=== PATIENT | female | born 1960 | race Caucasian/White ===

== ENCOUNTER 2023-05-24 19:28 | Emergency (ER) | payer MEDICARE, MEDICAID, SELFPAY ==
--- NOTE | ~2023-05-24 | CT_ITS ---
EXAMINATION: CT head/brain wo IV con CLINICAL INFORMATION: Reason for Exam headache COMPARISON: None. TECHNIQUE: Contiguous axial imaging was performed from the skull base to vertex without intravenous contrast. Sagittal and coronal reformatted images were obtained. This CT examination was performed using dose optimization techniques as appropriate, variously including the following: * Automated exposure control * Adjustment of mA and/or kV according to patient size (this includes techniques or standardized protocols for targeted exams where dose is matched to indication/reason for exam; i.e. extremities or head) Use of iterative reconstruction technique DLP: 578 mGy-cm FINDINGS: No acute osseous or soft tissue abnormality. The mastoid air cells and visualized portions of the paranasal sinuses are well aerated. There is no evidence of acute intracranial hemorrhage or territorial infarction. No abnormal mass effect or midline shift is seen. Andujar to white matter differentiation is well preserved. No extra-axial fluid collections are identified. No hydrocephalus. No significant volume loss. There is no abnormal attenuation within the brain parenchyma. CT/CT head/brain wo IV con IMPRESSION: No acute intracranial abnormality including hemorrhage, mass effect, hydrocephalus, or acute territorial edematous infarction.
[2023-05-24 19:38] VITALS: BP 137/71; PULSE 84; RESP 19; TEMP 36.5; O2SAT 97; BMI 25.7
--- NOTE | 2023-05-24 19:44 | ED_ITS ---
HPI - General Adult General Chief complaint: Head Injury Stated complaint: hit head a couple days ago. headache, vision probs Time Seen by Provider: 05/24/23 22:40 Source: patient and family Mode of arrival: ambulatory Limitations: no limitations History of Present Illness HPI narrative: This is a 25-uatb-ktj-female presenting to the emergency department for evaluation of ? possible head injury. Patient reports that she is unsure what happened but his question she hit her head on a cabinet several days ago. She states that her partner noticed swelling to the right side of her head. Patient does admit that she has psoriasis and occasionally bleeds on her scalp. On the right side of her head there is a area of swelling, tenderness, and eschar noted. Also with palpable posterior neck lymphadenopathy. Patient reporting dizziness and headaches as well as vision changes but also reports that she just had new glasses fitted to her this week. Focal neurologic findings on examination. Related Data Allergies Allergy/AdvReac Type Severity Reaction Status Date / Time pregabalin [From Lyrica] Allergy Swelling Verified 05/24/23 19:37 acetaminophen [From Percocet] AdvReac Hallucinati Verified 05/24/23 19:37 ons oxycodone [From Percocet] AdvReac Hallucinati Verified 05/24/23 19:37 ons Review of Systems Review of Systems: All other systems are reviewed and are negative Constitutional: Reports as per HPI and Reports no additional constitutional complaints Eyes: Reports as per HPI and Reports no additional eye complaints Reports system reviewed and no additional complaints, except as documented Cardiovascular: Reports as per HPI and Reports no additional cardiovascular complaints Respiratory: Reports as per HPI and Reports no additional respiratory complaints Gastrointestinal: Reports as per HPI and Reports no additional gastrointestinal complaints Genitourinary: Reports no additional female genitourinary complaints Musculoskeletal: Reports no additional musculoskeletal complaints Skin/Breast: Reports system reviewed and no additional complaints, except as docu Psychiatric: Reports no additional psychiatric complaints Endocrine: Reports no additional endocrine complaints Hematologic/Lymphatic: Reports no additional hematologic/lymphatic complaints Allergic/Immunologic: Reports no additional allergic/immunologic complaints Reports system reviewed and no additional complaints, except as documented and Reports Abnormal speech present [facility] Past Medical History Attestation statement: The following information was validated with the patient. Social History Social History Advance Directives: No Advance Directives Information Provided: Yes Physical Exam ED Vital Signs: Vital Signs - 24 hr 05/24/23 19:38 05/24/23 22:28 Temperature 97.7 F 98.0 F Pulse Rate 84 83 Respiratory Rate 19 18 Blood Pressure 137/71 129/69 Pulse Oximetry 97 99 Oxygen Delivery Method Room Air Room Air BMI result Body Mass Index 25.7 Vital signs have been reviewed as appeared to be correct. Blood pressure normal. Heart rate normal. Respiration rate normal. Temperature normal. Oxygen saturation normal. Appearance: Alert. Oriented X3. No acute distress. Head: Normal external exam. Normocephalic. Atraumatic. No Leos signs noted. No raccoon eyes noted Eyes: PERRLA. EOMI. Conjunctiva and sclera normal. Eyelids normal. ENT: TM's Normal. Pharynx normal. Uvula midline. Moist mucous membranes. No trismus noted. No drooling noted. No muffled voice noted. Neck: Normal inspection. Neck supple. FROM. No adenopathy. Thyroid Normal. No meningeal signs. No neck mass noted. CVS: Normal heart rate and rhythm. Heart sound normal. No murmurs noted. Pulses normal throughout. Respiratory: No respiratory distress. Painless inspiration. Breath sounds norm al. No wheezes/rales/rhonchi noted. Chest nontender. No accessory muscle usage noted or decreased air movement noted. Abdomen: Soft and nontender. Bowel sounds normal in all 4 quadrants. No distenti on noted. No organomegaly noted. No visible injury noted. Back: No CVA tenderness. Full range of motion noted. Skin: Skin warm and dry. Normal skin color. Normal skin turgor. No rashes/lesions/lacerations noted. Extremities: No lower extremity edema. Extremities exhibit normal range of motion. Extremities nontender. Neuro: Oriented X 3. Cranial nerve exam: II-XII are grossly intact No motor deficit. No sensory deficit. Reflexes normal. Course Course Course Narrative: This is an RME: Additional HPI, ROS, PE not included below will be deferred to primary provider. This is a 62-yizt-pqh-female presenting to the emergency department for evaluation of ? possible head injury. Patient reports that she is unsure what happened but his question she hit her head on a cabinet several days ago. She states that her partner noticed swelling to the right side of her head. Patient does admit that she has psoriasis and occasionally bleeds on her scalp. On the right side of her head there is a area of swelling, tenderness, and eschar noted. Also with palpable posterior neck lymphadenopathy. Patient reporting dizziness and headaches as well as vision changes but also reports that she just had new glasses fitted to her this week. Focal neurologic findings on examination. No LOC. Patient is not on anticoagulants. Plan: basic labs, further ED eval Reevaluation(s) Reevaluation #1: GCS of 15, normal neuro exam, head CT is unremarkable for intra cranial bleed or pathology. Time: 23:11 Medical Decision Making Differential Diagnosis Differential Diagnoses: The differential diagnosis associated with the presentation includes (Intracranial bleed, electrolyte abnormality, severe an emia, UTI.) Admission/Observation Consideration of admission/observation: Escalation of care including admission/observation considered Lab Data MDM Lab Attestation statement: I reviewed the patient's lab results. 05/24/23 20:03 05/24/23 20:03 Labs: Lab Results 05/24/23 05/24/23 Range/Units 20:03 20:03 WBC 7.0 (4.8-10.8) X10*3/uL RBC 5.00 (4.20-5.50) X10*6/uL Hgb 14.6 (12.0-16.0) g/dl Hct 45.2 (37.0-47.0) % MCV 90.4 (80.0-98.0) fL MCH 29.2 (27.0-33.0) pg MCHC 32.3 (31.0-35.0) g/dl RDW 13.6 (11.0-16.0) % Plt Count 195 (160-400) X10*3/uL MPV 11.0 (9.4-12.3) fL Immature Gran % (Auto) 0.3 (0.0-0.4) % Neut % (Auto) 61.9 (45-73) % Lymph % (Auto) 30.4 (20-40) % Mower % (Auto) 7.1 (2-11) % Eos % (Auto) 0.0 (0-4) % Baso % (Auto) 0.3 (0-2) % Lymph # (Auto) 2.1 (1.2-4.9) X10*3/uL Mower # (Auto) 0.5 (0.1-1.2) X10*3/uL Eos # (Auto) 0.0 (0.0-0.4) X10*3/uL Baso # (Auto) 0.0 (0.0-0.2) X10*3/uL Abs Immat Gran (auto) 0.02 (0.00-0.03) X10*3/uL Absolute Neuts (auto) 4.4 (2.0-8.3) x10*3/uL Absolute Nucleated RBC 0.000 (0.0-0.012) X10*3/uL Nucleated RBC % (auto) 0.0 (0.0-0.2) /100WBC Sodium 139 (135-145) mmol/L Potassium 3.7 (3.3-5.1) mmol/L Chloride 102 (96-108) mmol/L Carbon Dioxide 23 (22-29) mmol/L Anion Gap 18 (12-20) BUN 10 (9-16) mg/dL Creatinine 0.79 (0.5-1.4) mg/dL Estim Creat Clear Calc 65.5 Estimated GFR > 60 Random Glucose 117 H (60-115) mg/dL Calcium 10.2 (8.4-10.2) mg/dL Independent Interpretation I performed an independent interpretation of an: CT Scan (Head: No acute intracranial pathology.) Radiology Impression Discussion of test interpretation with radiology: I have reviewed the radiologist's reading. Discharge Plan Discharge Clinical Impression: Concussion without loss of consciousness Patient Disposition: Home, Self-Care Instructions: Post Concussion Syndrome (ED) Referrals: Physician,Unknown J [Primary Care Provider] -
[2023-05-24 20:08] LABS: MANUAL DIFF FLAG NO
[2023-05-24 20:09] LABS: Basophils Percent Auto 0.3 % (0-2); Hematocrit 45.2 % (37.0-47.0); Hemoglobin 14.6 g/dl (12.0-16.0); Imm Gran Abs Auto 0.02 X10*3/uL (0.00-0.03); Imm Gran Pct Auto 0.3 % (0.0-0.4); Lymphocytes Absolute Auto 2.1 X10*3/uL (1.2-4.9); Lymphocytes Percent Auto 30.4 % (20-40); Mean Corpuscular HGB Conc 32.3 g/dl (31.0-35.0); Mean Corpuscular Hemoglobin 29.2 pg (27.0-33.0); Mean Corpuscular Volume 90.4 fL (80.0-98.0); Monocytes Absolute Auto 0.5 X10*3/uL (0.1-1.2); Monocytes Percent Auto 7.1 % (2-11); Neutrophils Absolute Auto 4.4 x10*3/uL (2.0-8.3); Neutrophils Percent Auto 61.9 % (45-73); Platelet Count 195 X10*3/uL (160-400); Red Cell Distribution Width 13.6 % (11.0-16.0)
[2023-05-24 20:35] LABS: Anion Gap 18 (12-20); Blood Urea Nitrogen 10 mg/dL (9-16); Calcium 10.2 mg/dL (8.4-10.2); Carbon Dioxide 23 mmol/L (22-29); Chloride 102 mmol/L (96-108); Creatinine Clr Calc Pharmacy 65.5; Estimated Glomerular Filt Rate > 60; Glucose Random 117 mg/dL (60-115); Potassium 3.7 mmol/L (3.3-5.1); Sodium 139 mmol/L (135-145)
[2023-05-24 22:28] VITALS: BP 129/69; PULSE 83; RESP 18; TEMP 36.7; O2SAT 99
[2023-05-25 00:26] LABS: Appearance Urine Clear; Color Urine Yellow; Glucose Urine UA Negative (Negative); Leukocyte Esterase Urine Moderate (2+) (Negative); Nitrite Urine Negative (Negative); PH 5.5 (5.0-9.0); UMIC TRIGGER UACC YES; Urine Blood Negative (Negative); Urine Ketones Negative (Negative); Urine Protein Negative (Neg-Trace)
[2023-05-25 00:31] LABS: Bacteria Urine 2+ (None Seen); Hyaline Casts Urine 0-2 /LPF (0-2); RBC Urine 0-2 /HPF (0-2); UACC Culture Trigger YES; WBC Urine 21-50 /HPF (0-5)
== END 2023-05-25 00:21 | disposition home or self-care (01) ==
PROVIDERS: Physician Assistant Medical; Emergency Provider Emergency Medicine
DX: S06.0X0A Concussion without loss of consciousness, initial encounter (principal); R51.9 Headache, unspecified; R42 Dizziness and giddiness; M54.2 Cervicalgia; Y29.XXXA Contact with blunt object, undetermined intent, initial encounter; Y93.9 Activity, unspecified; Y92.9 Unspecified place or not applicable; Y99.9 Unspecified external cause status; Z79.899 Other long term (current) drug therapy
CPT/HCPCS: 36415; 70450; 80048; 81001; 85025; 87086; 99283; 99284

== ENCOUNTER 2024-10-21 20:23 | Inpatient (IN) | payer MEDICARE, MEDICAID, SELFPAY ==
[2024-10-21 20:30] VITALS: BP 142/86; BP 157/92; PULSE 109; PULSE 91; RESP 15; TEMP 36.5; O2SAT 97; O2SAT 99; BMI 25.7
[2024-10-21 21:09] LABS: Appearance Urine Clear; Color Urine Yellow; Glucose Urine UA Negative (Negative); Leukocyte Esterase Urine Small (1+) (Negative); Nitrite Urine Negative (Negative); Specific Gravity - Urine 1.025 (1.005-1.025); UMIC TRIGGER UACC YES; Urine Blood Negative (Negative); Urine Ketones Negative (Negative); Urine Protein Negative (Neg-Trace)
--- OUTSIDE RECORDS SUMMARY | 2024-10-21 21:14 | XMS_ITS ---
Author Organization [facility] [place] Address [address] [place], [place] [id number] Care Team Providers Care Retail Security Professional Name Role Phone Ragini Tovar Primary Care Provider Aliyah Mathews Unavailable [phone] Allergies Allergen (clinical drug ingredient) Drug/Non Drug Allergy documented on EMR Reaction Allergy Type Onset Date Status pregabalin Lyrica Unknown Drug Allergy Active acetaminophen / oxycodone Percocet Unknown Drug Allergy Active milnacipran Savella Unknown Drug Allergy Activ e REASON FOR VISIT 2MO F/U-C Medications Medication SIG (Take, Route, Frequency, Duration) Notes Start Date End Date Status Fosamax 70 MG 1 tablet 30 minutes before the first food, beverage or medicine of the day with plain water Orally Active traZODone HCl 150 MG 1 tablet at bedtime Orally Once a day Not-Taking Alendronate Sodium 70 MG 1 tablet 30 min utes before the first food, beverage or medicine of the day with plain water Orally weekly for 84 days Active Rosuvastatin Calcium 40 MG 1 tablet Orally Once a day Active Ramelteon 8 MG 1 tablet at bedtime as needed Orally Once a day for 30 days 07/17/2024 Active Ezetimibe 10 MG 1 tablet Orally Once a day Active Social History Tobacco Use: Social History Observation Description Date Details (start date - stop date) Never Smoker NA - NA Tobacco Question Answer Notes Are you a: never smoker Vital Signs Weight 156 lbs 07/17/2024 Blood pressure systolic 150 mm Hg 09/19/20 24 Blood pressure diastolic 84 mm Hg 024 Heart Rate 72 /min 07/17/2024 Respiratory Rate 16 /min 07/17/2024 Height 63 in 07/17/2024 BMI 27.63 kg/m2 07/17/2024 Encounters Encounter Location Date Provider Diagnosis [facility] [address] [facility] [address] [place], [place] [phone] 07/17/2024 Aliyah Thurman Excessive daytime sleepiness G47.19 ; ELISE (obstructive sleep apnea) G47.33 ; Restless sleeper G47.9 ; Overweight E66.3 and Nightmares F51.5 Assessments Encounter Date Diagnosis (ICD Code) Assessment Notes Treatment Notes Treatment Clinical Notes Section Notes 07/17/2024 Excessive daytime sleepiness (ICD-10 - G47.19) Improved with CPAP 07/17/2024 ELISE (obstructive sleep apnea) (ICD-10 - G47.33) She is using her CPAP machine and benefiting from using it, I changed her CPAP pressure to auto CPAP 5-10, advised to use her machine more than 4 hours every night. CPAP care instructions were provided 07/17/2024 Restless sleeper (ICD-10 - G47.9) Still wakes up multiple times during the night I will start her on Ramelteon 07/17/2024 Overweight (ICD-10 - E66.3) Educated through the correlation between ELISE and obesity 07/17/2024 Nightmares (ICD-10 - F51.5) I will reevaluate her nightmares when she is compliant with her CPAP Plan Of Treatment Medication Medication Name Sig Start Date Stop Date Notes Ramelteon 8 MG 1 tablet at bedtime as needed Orally Once a day for 30 days 07/17/2024 Treatment Notes Assessment Notes Excessive daytime sleepiness Improved wi th CPAP ELISE (obstructive sleep apnea) She is using her CPAP machine and benefiting from using it, I changed her CPAP pressure to auto CPAP 5-10, advised to use her machine more than 4 hours every night. CPAP care instructions were provided Restless sleeper Still wakes up multiple times during the night I will start her on Ramelteon Overweight Educated through the correlation between ELISE and obesity Nightmares I will reevaluate he r nightmares when she is compliant with her CPAP Next Appt Details Follow Up: 6 Months with Lisandro prince, Reason: Provider Name:Corrie Swenson oliver, 01/13/2025 01:00:00 PM, [address] [facility], [address], [place], [place], [phone], Progress Notes * Gloria FINEB:1960 ( 64 yo F)Acc No.[id number]:07/17/2024 F/U [place] Patient:?Barbara FINE Provider:?Aliyah Thurman MD :1960???Age:64 Y???Sex:Female D ate:07/17/2024 Address:[address] [place], [place] [id number] Pcp:Ragini Tovar Subjective: * Chief Complaints: * ???2MO F/U-C * HPI: ???History of Present Illness:? 64 -year-old female with obstructive sleep apnea for follow-up ?Diagnosed with HST on 04/29/2024: AHI 5, RDI 8 ?treated with auto CPAP 5-15 with DreamWear nasal mask. She has been struggling with compliance, feels better when she uses it. ?Bedtime between 10 and 11 PM, falls asleep within 20 minutes, but she wakes up multiple times during the night almost every hour, gets up at 6 AM, no morning headache, she has dry mouth sometimes, drinks 1-2 cups of coffee daily, doesn't take naps. ?Compliance report was downloaded and discussed with the patient 06/10/2024 to 07/08/2024: usage more than 4 hours 53%, average usage on days used 3 hours and 52 minutes, residual AHI 6.2, no significant leak ?No major change in her health or weight since last visit. ???Kirkwood sleepiness scale:?Sitting and reading?2.?Watching TV?2.?Sitting inactive in a public place?0.?Being a passenger in car longer than 1 hour?0.?Lying down in the afternoon?0.?Sitting and Talking with someone?0.?Sitting quietly after lunch (no alcohol)?0.?Stopped for a few minutes in traffic while driving?0.?Total?4.? * ROS:?Follow up ROS 2:?General?No fever, chills, sweats, No excessive fatigue, Appetite good, weight stable.?EENT?No change in vision, No ocular discharge or pruritis, No change in hearing, Sense of smell/taste intact, No sore throat.?Cardiac?No chest pain, pressure or tightness, No extremity edema, No lightheadedness, No orthopnea or PND.?Respiratory?No dyspnea, wheezing, chest tightness, cough or sputum production.?GI?No abdominal pain, nausea, vomiting or diarrhea. No sx of YARELIS.?Musculoskeletal?No acute arthralgias or myalgias.?Dermatologic?No rash, eczema or urticaria.?Neurologic?No headache or dizziness.?Psychiatric?No complaint of depression or anxiety.?Hematology/Lymph?No swollen glands, No easy bruising.?Actively smoking?No.? * Medical History:? * Surgical History:?Tubal liga tion Breast surgery Dental surgery * Hospitalization/Major Diagno stic Procedure:?Denies Past Hospitalization * Family History:?Father: dece ased 82 yrs, diagnosed with Chronic obstructive pulmonary disease (COPD).?Mother: 82 yrs, Dementia.? * Social History:?Marital stat us: Lives with significant other. Children: Three. Occupation: Unemployed, Disabled. Tobacco?Are you a:?never smoker.?Alcohol: Occasional. Recreational drug use: Marijuana smokes it daily. Exercise: Structured exercise regimen, Walks regularly. * Medications:?TakingFosamax 7 0 MG Tablet 1 tablet 30 minutes before the first food, beverage or medicine of the day with plain water Orally Ezetimibe 10 MG Tablet 1 tablet Orally Once a day Rosuvastatin Calcium 40 MG Tablet 1 tablet Orally Once a day Alendronate Sodium 70 MG Tablet 1 tablet 30 minutes before the first food, beverage or medicine of the day with plain water Orally weekly Taking Fosamax 70 MG Tablet 1 tablet 30 minutes before the first food, beverage or medicine of the day with plain water Orally Taking Ezetimibe 10 MG Tablet 1 tablet Orally Once a day Taking Rosuvastatin Calcium 40 MG Tablet 1 tablet Orally Once a day Taking Alendronate Sodium 70 MG Tablet 1 tablet 30 minutes before the first food, beverage or medicine of the day with plain water Orally weekly Not-Taking/PRNtraZODone HCl 150 MG Tablet 1 tablet at bedtime Orally Once a day Medication List reviewed and reconciled with the patientNot-Taking/PRN traZODone HCl 150 MG Tablet 1 tablet at bedtime Orally Once a day Medication List reviewed and reconciled with the patient * Allergies:?Flaco marshall[Allergies Verified] Objective: * Vitals:?Wt: 156, BP:150/84, HR: 72, RR: 16, O2 sat: 98%RA, Ht: 63, BMI:27.63. * Examination: ???General Physical Exam: ?General Appearance:?in no acute distress.?Chest?Normal shape and expansion with respiration.?Lungs?Respiratory rate is normal, ?Breath sounds are clear bilaterally.?Heart:?Normal rate, regular rhythm, Normal S1, normal S2, no murmurs, rub, gallop.?Abdomen?Soft, non tender.?Extremities?No digital clubbing, acrocyanosis or peripheral edema.?Skin:?Warm and dry, No rash on partial skin exam.?Neuro:?A & O x 3, Grossly nonfocal motor and sensory exam.?Data?All data and notes provided were personally reviewed ?Home sleep test on 04/29/2024: AHI 5, RDI 8 ?Compliance report 06/10/2024 to 07/08/2024: usage more than 4 hours 53%, average usage on days used 3 hours and 52 minutes, residual AHI 6.2, no significant leak ?.? Assessment: * Assessment: 1.?ELISE (obstructive sleep ap josé miguel) - G47.33 (Primary)?2.?Excessive daytime sleepiness - G47.19?3.?Restless sleeper - G47.9?4.?Overweight - E66.3?5.?Nightmares - F51.5? Plan: * Treatment: 2.?Excessive daytime sleepin ess? Notes: Improved with CPAP?? 3.?Restless sleeper? Start Ramelteon Tablet, 8 MG, 1 tablet at bedtime as needed, Orally, Once a day, 30 days, 30 Tablet, Refills 1.?? Notes: Still wakes up multiple times during the night I will start her on Ramelteon ?? 4.?Overweight? Notes: Educated through the correlation between ELISE and obesity?? 5.?Nightmares? Notes: I will reevaluate her nightmares when she is compliant with her CPAP ?? * Procedure Codes:? * Follow Up:?6 Months with Lisandro prince * Images: * Sign off status: Completed true * Provider:?Aliyah Thurman MD Date:? Generated for Lexis lucio/Lesa/Jesicasmitting on:?10/21/2024 09:14 PM EST History and Physical Notes * HPI (History of Present Illness) Category Sub-Category Detail Notes Category Not es Kirkwood sleepiness scale Sitting and reading 2 Watching TV 2 Sitting inactive in a public place 0 Being a passenger in car longer than 1 h our 0 Lying down in the afternoon 0 Sitting and Talking with someone 0 Sitting quietly after lunch (no alcohol) 0 Stopped for a few minutes in traffic whi le driving 0 Total 4 History of Present Illness 64 -year-old female with obstructive sleep apnea for follow-up Diagnosed with HST on 04/29/2024: AHI 5, RDI 8 treated with auto CPAP 5-15 with DreamWear nasal mask. She has been struggling with compliance, feels better when she uses it. Bedtime between 10 and 11 PM, falls asleep within 20 minutes, but she wakes up multiple times during the night almost every hour, gets up at 6 AM, no morning headache, she has dry mouth sometimes, drinks 1-2 cups of coffee daily, doesn't take naps. Compliance report was downloaded and discussed with the patient 06/10/2024 to 07/08/2024: usage more than 4 hours 53%, average usage on days used 3 hours and 52 minutes, residual AHI 6.2, no significant leak No major change in her health or weight since last visit Examination Category Sub-Category Detail Notes Category Not es General Physical Exam Heart: Normal rat e, regular rhythm, Normal S1, normal S2, no murmurs, rub, gallop Lungs Respiratory rate is normal, Breath sounds are clear bilaterally General Appearance: in no acute distress Chest Normal shape and exp ansion with respiration Extremities No digital clubbing, acrocyanosis or peripheral edema Skin: Warm and dry, No lorene h on partial skin exam Neuro: A & O x 3, Grossly n onfocal motor and sensory exam Abdomen Soft, non tender Data All data and notes p rovided were personally reviewed Home sleep test on 04/29/2024: AHI 5, RDI 8 Compliance report 06/10/2024 to 07/08/2024: usage more than 4 hours 53%, average usage on days used 3 hours and 52 minutes, residual AHI 6.2, no significant leak
--- OUTSIDE RECORDS SUMMARY | 2024-10-21 21:14 | XMS_ITS ---
Author Organization [facility] Address [address] [place], [place] [id number] Care Team Providers Care Embossing Press Operator Apprentice Name Role Phone La Ragini Primary Care Provider Aliyah Mathews Unavailable [phone] Allergies Allergen (clinical drug ingredient) Drug/Non Drug Allergy documented on EMR Reaction Allergy Type Onset Date Status pregabalin Lyrica Unknown Drug Allergy Active acetaminophen / oxycodone Percocet Unknown Drug Allergy Active milnacipran Savella Unknown Drug Allergy Activ e REASON FOR VISIT Follow Up HST Medications Medication SIG (Take, Route, Frequency, Duration) Notes Start Date End Date Status traZODone HCl 150 MG 1 tablet at bedtime Orally Once a day Not-Taking Ezetimibe 10 MG 1 tablet Orally Once a day Active Rosuvastatin Calcium 40 MG 1 tablet Orally Once a day Active Fosamax 70 MG 1 tablet 30 minutes before the first food, beverage or medicine of the day with plain water Orally Active Social History Tobacco Use: Social History Observation Description Date Details (start date - stop date) Never Smoker NA - NA Tobacco Question Answer Notes Are you a: never smoker Vital Signs Weight 159 lbs 05/07/2024 Blood pressure systolic 126 mm Hg 05/07/20 24 Blood pressure diastolic 72 mm Hg 024 Heart Rate 73 /min 05/07/2024 Respiratory Rate 16 /min 05/07/2024 Height 63 in 05/07/2024 BMI 28.16 kg/m2 05/07/2024 Encounters Encounter Location Date Provider Diagnosis [facility] [address] [place], [place] [id number] 05/07/2024 Aliyah Thurman Excessive daytime sleepiness G47.19 ; ELISE (obstructive sleep apnea) G47.33 ; Restless sleeper G47.9 ; Overweight E66.3 and Nightmares F51.5 Assessments Encounter Date Diagnosis (ICD Code) Assessment Notes Treatment Notes Treatment Clinical Notes Section Notes 05/07/2024 Excessive daytime sleepiness (ICD-10 - G47.19) Secondary to obstructive sleep apnea and poor sleep. 05/07/2024 ELISE (obstructive sleep apnea) (ICD-10 - G47.33) Patient has mild obstructive sleep apnea, I have discussed the sleep study findings with the patient, patient was educated about treatment options and the importance of treatment. I will start her on auto CPAP 05/07/2024 Restless sleeper (ICD-10 - G47.9) I believe her multiple awakenings are secondary to obstructive sleep apnea 05/07/2024 Overweight (ICD-10 - E66.3) Weight monitoring was advised 05/07/2024 Nightmares (ICD-10 - F51.5) I will reevaluate her nightmares after we establish her on CPAP therapy 05/07/2024 Other Plan Of Treatment Treatment Notes Assessment Notes Excessive daytime sleepiness Secondary t o obstructive sleep apnea and poor sleep. ELISE (obstructive sleep apnea) Patient has mild obstructive sleep apnea, I have discussed the sleep study findings with the patient, patient was educated about treatment options and the importance of treatment. I will start her on auto CPAP Restless sleeper I believe her multip le awakenings are secondary to obstructive sleep apnea Overweight Weight monitoring wa s advised Nightmares I will reevaluate he r nightmares after we establish her on CPAP therapy Next Appt Details Follow Up: 2 Months, start a uto CPAP 5-15, Reason: Provider Name:Corrie boyd, 01/13/2025 01:00:00 PM, [address], [address], [place], [place], [id number], Progress Notes * Gloria FINEB:1960 ( 64 yo F)Acc No.[id number]:05/07/2024 F/U [place] Patient:?Barbara FINE Provider:?Aliyah Thurman MD :1960???Age:64 Y???Sex:Female D ate:05/07/2024 Address:[address] [place], [place] [id number] Pcp:Ragini Tovar Subjective: * Chief Complaints: * ???Follow Up HST * HPI: ???History of Present Illness:? 64 -year-old female came for follow-up after home sleep test ?Initially was referred to [facility] as she has problem falling asleep and staying asleep, bedtime between 10 and 11 PM, falls asleep within 20 minutes, sometimes longer because of pain, wakes up multiple times during the night, tosses and turns, gets up between 5 and 6 AM, no morning headache, she has dry mouth, drinks 2 cups of coffee in the morning, doesn't take naps. ?Home sleep test on 04/29/2024: AHI 5, RDI 8 ?No major change in her health or weight since last visit. ???[place]ell sleepiness scale:?Sitting and reading?3.?Watching TV?3.?Sitting inactive in a public place?0.?Being a passenger in car longer than 1 hour?3.?Lying down in the afternoon?3.?Sitting and Talking with someone?0.?Sitting quietly after lunch (no alcohol)?2.?Stopped for a few minutes in traffic while driving?0.?Total?14.? * ROS:?Follow up ROS 2:?General?No fever, chills, [...] 1 tablet Orally Once a day Taking Fosamax 70 MG Tablet 1 tablet 30 minutes before the first food, beverage or medicine of the day with plain water Orally Taking Ezetimibe 10 MG Tablet 1 tablet Orally Once a day Taking Rosuvastatin Calcium 40 MG Tablet 1 tablet Orally Once a day Not-Taking/PRNtraZODone HCl 150 MG Tablet 1 tablet at bedtime Orally Once a day Medication List reviewed and reconciled with the patientNot-Taking/PRN traZODone HCl 150 MG Tablet 1 tablet at bedtime Orally Once a day Medication List reviewed and reconciled with the patient * Allergies:?Flaco marshall[Allergies Verified] Objective: * Vitals:?Wt:159, BP:126/72, H R:73, RR:16, O2 sat:97 % RA, Ht:63, BMI:28.16. * Examination: ???General Physical Exam: ?General Appearance:?in [...] test on 04/29/2024: AHI 5, RDI 8 ?.? Assessment: * Assessment: 1.?ELISE (obstructive sleep ap josé miguel) - G47.33 (Primary)?2.?Excessive daytime sleepiness - G47.19?3.?Restless sleeper - G47.9?4.?Overweight - E66.3?5.?Nightmares - F51.5? Plan: * Treatment: 2.?Excessive daytime sleepin ess? Notes: Secondary to obstructive sleep apnea and poor sleep. ?? 3.?Restless sleeper? Notes: I believe her multiple awakenings are secondary to obstructive sleep apnea?? 4.?Overweight? Notes: Weight monitoring was advised?? 5.?Nightmares? Notes: I will reevaluate her nightmares after we establish her on CPAP therapy?? * Procedure Codes:? * Preventive Medicine:? ??Counseling:?DIET -?Above Normal BMI Follow-up?Dietary management education, guidance, and counseling.? * Follow Up:?2 Months, start a uto CPAP 5-15 * Images: * Sign off status: Completed true * Provider:?Aliyah Thurman MD Date:?07/2024 Generated for Lexis lucio/Lesa/Lucianitting on:?10/21/2024 09:14 PM EST History and Physical Notes * HPI (History of Present Illness) Category Sub-Category Detail Notes Category Not es Fombell sleepiness scale Sitting and reading 3 Watching TV 3 Sitting inactive in a public place 0 Being a passenger in car longer than 1 h our 3 Lying down in the afternoon 3 Sitting and Talking with someone 0 Sitting quietly after lunch (no alcohol) 2 Stopped for a few minutes in traffic whi le driving 0 Total 14 History of Present Illness 64 -year-old female came for follow-up after home sleep test Initially was referred to [facility] as she has problem falling asleep and staying asleep, bedtime between 10 and 11 PM, falls asleep within 20 minutes, sometimes longer because of pain, wakes up multiple times during the night, tosses and turns, gets up between 5 and 6 AM, no morning headache, she has dry mouth, drinks 2 cups of coffee in the morning, doesn't take naps. Home sleep test on 04/29/2024: AHI 5, RDI 8 No major change in her health or [...]
--- OUTSIDE RECORDS SUMMARY | 2024-10-21 21:14 | XMS_ITS | Patient Health Record ---
Author Organization [facility] Address [address] [place], [place] [address] Care Team Providers Care Filling Machine Operator Name Role Phone Ragini Tovar Primary Care Provider UnavailAliyah Castillo Unavailable [phone] Guy Rangel Unavailable [phone] Allergies Allergen (clinical drug ingredient) Drug/Non Drug Allergy documented on EMR Reaction Allergy Type Onset Date Status pregabalin Lyrica Unknown Drug Allergy Active acetaminophen / oxycodone Percocet Unknown Drug Allergy Active milnacipran Savella Unknown Drug Allergy Activ e Reason For Referral No Information Medications Medication SIG (Take, Route, Frequency, Duration) Notes Start Date End Date Status Ezetimibe 10 MG 1 tablet Orally Once [...] a day for 30 days 07/17/2024 Active Social History Tobacco Use: Social History Observation Description Date Details (start date - stop date) Never Smoker NA - NA Tobacco Question Answer Notes Are you a: never smoker Problems Problem Type SNOMED Code ICD Code Onset Dates Problem Status W/U Status Risk Notes Problem 031204957 Fibromyalgia (M79.7) Active confirmed Problem 802071281939 Excessive daytim e sleepiness (G47.19) Active confirmed Problem 843796455 Nightmares (F51.5) Active confirmed Problem 71281701 Hyperlipidemia, unspecified hyperlipidemia type (E78.5) Active confirmed Problem 44422156 ELISE (obstructive sleep apnea) (G47.33) Active confirmed Problem 57829236 Restless sleeper (G47.9) Active confirmed Problem 45142011 Age related osteoporosis, unspecified pathological fracture presence (M81.0) Active confirmed Vital Signs Heart Rate 72 /min 07/17/2024 Respiratory Rate 16 /min 07/17/2024 Blood pressure diastolic 84 mm Hg 07/17/2024 Height 63 in 07/17/2024 Blood pressure systolic 150 mm Hg 07/17/2024 Weight 156 lbs 07/17/2024 BMI 27.63 kg/m2 07/17/2024 Encounters Encounter Location Date Provider Diagnosis [facility] [address] [id number] 03/28/2024 Ly Albakour Snoring R06.83 ; Excessive daytime sleepiness G47.19 ; Restless sleeper G47.9 ; Overweight E66.3 and Nightmares F51.5 [facility] [address] [id number] 04/28/2024 Ly Albakour [facility] [address] [id number] 05/07/2024 Ly Albakour Excessive daytime sleepiness G47.19 ; ELISE (obstructive sleep apnea) G47.33 ; Restless sleeper G47.9 ; Overweight E66.3 and Nightmares F51.5 [facility] [address] [id number] 07/17/2024 Ly Albakour Excessive daytime sleepiness G47.19 ; ELISE (obstructive sleep apnea) G47.33 ; Restless sleeper G47.9 ; Overweight E66.3 and Nightmares F51.5 [facility] [address] [place], [place] [id number] 02/22/2024 Guy Rangel [facility] [address] [place], [place] [id number] 07/18/2024 Aliyah Thurman Assessments Encounter Date Diagnosis (ICD Code) Assessment Notes Treatment Notes Treatment Clinical Notes Section Notes 03/28/2024 Snoring (ICD-10 - R06.83) Patient is highly likely to have obstructive sleep apnea giving her snoring, Mallampati class IV, overweight, fragmented sleep and excessive daytime sleepiness. Educated about sleep apnea, pathology, comorbidities, risk factors, diagnostic process, treatment options and the importance of treatment. I will order home sleep test and we will discuss the results in the next visit. 03/28/2024 Excessive daytime sleepiness (ICD-10 - G47.19) Secondary to underlying sleep breathing disorder, advised not to drive if she feels sleepy or drowsy. 05/07/2024 Excessive daytime sleepiness (ICD-10 - G47.19) Secondary to obstructive sleep apnea and poor sleep. 05/07/2024 ELISE (obstructive sleep apnea) (ICD-10 - G47.33) Patient has mild obstructive sleep apnea, I have discussed the sleep study findings with the patient, patient was educated about treatment options and the importance of treatment. I will start her on auto CPAP 07/17/2024 Excessive daytime sleepiness (ICD-10 - G47.19) Improved with CPAP 07/17/2024 ELISE (obstructive sleep apnea) (ICD-10 - G47.33) She is using her CPAP machine and benefiting from using it, I changed her CPAP pressure to auto CPAP 5-10, advised to use her machine more than 4 hours every night. CPAP care instructions were provided 05/07/2024 Restless sleeper (ICD-10 - G47.9) I believe her multiple awakenings are secondary to obstructive sleep apnea 03/28/2024 Restless sleeper (ICD-10 - G47.9) Most likely her multiple awakenings are secondary to underlying sleep breathing disorder and joints pain 05/07/2024 Overweight (ICD-10 - E66.3) Weight monitoring was advised 07/17/2024 Restless sleeper (ICD-10 - G47.9) Still wakes up multiple times during the night I will start her on Ramelteon 03/28/2024 Overweight (ICD-10 - E66.3) Weight loss, diet and exercise were discussed, patient was educated about the correlation between ELISE and obesity 03/28/2024 Nightmares (ICD-10 - F51.5) I will reevaluate the frequency of her nightmares after we establish her on appropriate therapy for underlying sleep breathing disorder 07/17/2024 Overweight (ICD-10 - E66.3) Educated through the correlation between ELISE and obesity 05/07/2024 Nightmares (ICD-10 - F51.5) I will reevaluate her nightmares after we establish her on CPAP therapy 07/17/2024 Nightmares (ICD-10 - F51.5) I will reevaluate her nightmares when she is compliant with her CPAP 05/07/2024 Other Plan Of Treatment Future Test Test Name Order Date Home sleep study 04/15/2024 Next Appt Details Provider Name:Corrie Messi boyd, 01/13/2025 01:00:00 PM, [address] [facility], [address], [place], [place], [id number], Insurance Providers Payer Name Payer Address Payer Phone Subscriber Number Group Number Insured Name Patient Relationship to Insured Coverage Start Date Coverage End Date Medicare [id number] [place] [phone] [id number] Barbara Estes Self - patient is the insured Medicaid [address] [place] [phone] [id number] Barbara Estes Self - patient is the insured Medical (General) History Medical History History ICD Code Fibromyalgia M79.7 Hyperlipidemia, unspecified hyperlipidem ia type E78.5 Age related osteoporosis, unspecified pa thological fracture presence M81.0 ELISE (obstructive sleep apnea) G47.33 Surgical History Surgery Date(Month/Year) Tubal ligation Breast surgery Dental surgery
[2024-10-21 21:15] LABS: Bacteria Urine 1+ (None Seen); Hyaline Casts Urine 0-2 /LPF (0-2); RBC Urine 0-2 /HPF (0-2); UACC Culture Trigger YES
[2024-10-21 21:16] LABS: MANUAL DIFF FLAG NO
[2024-10-21 21:18] LABS: Amphetamine Screen Urine Not Detected (Not Detect); Barbiturates, Urine Not Detected (Not Detect); Benzodiazepines Screen Urine Not Detected (Not Detect); Buprenorphine Scr Not Detected (Not Detect); Cannabinoid Screen Urine POSITIVE (Not Detect); Cocaine Screen Urine Not Detected (Not Detect); Fentanyl, urine Not Detected (Not Detect); Methadone Screen, Urine Not Detected (Not Detect); Opiate Screen Urine Not Detected (Not Detect); Oxycodone Screen Urine Not Detected (Not Detect); Phencyclidine Screen Urine Not Detected (Not Detect)
[2024-10-21 21:18] LABS: Basophils Percent Auto 0.4 % (0-2); Hematocrit 42.7 % (37.0-47.0); Hemoglobin 14.6 g/dl (12.0-16.0); Imm Gran Abs Auto 0.01 X10*3/uL (0.00-0.03); Imm Gran Pct Auto 0.1 % (0.0-0.4); Lymphocytes Absolute Auto 1.9 X10*3/uL (1.2-4.9); Lymphocytes Percent Auto 23.5 % (20-40); Mean Corpuscular HGB Conc 34.2 g/dl (31.0-35.0); Mean Corpuscular Hemoglobin 30.6 pg (27.0-33.0); Mean Corpuscular Volume 89.5 fL (80.0-98.0); Mean Platelet Volume 10.8 fL (9.4-12.3); Monocytes Absolute Auto 0.7 X10*3/uL (0.1-1.2); Monocytes Percent Auto 9.2 % (2-11); Neutrophils Absolute Auto 5.3 x10*3/uL (2.0-8.3); Neutrophils Percent Auto 66.8 % (45-73); Platelet Count 200 X10*3/uL (160-400); Red Blood Count 4.77 X10*6/uL (4.20-5.50); Red Cell Distribution Width 13.5 % (11.0-16.0); White Blood Count 7.9 X10*3/uL (4.8-10.8)
[2024-10-21 21:29] LABS: Ethanol < 10 mg/dL
[2024-10-21 21:31] LABS: Alanine Aminotransferase 25 U/L (0-31); Albumin Level 4.6 g/dL (3.5-5.0); Alkaline Phosphatase 54 U/L (39-117); Anion Gap 13 (12-20); Aspartate Amino Transferase 36 U/L (5-31); Bilirubin Total 0.4 mg/dL (0.0-1.0); Blood Urea Nitrogen 11 mg/dL (9-16); Calcium 9.5 mg/dL (8.4-10.2); Carbon Dioxide 25 mmol/L (22-29); Chloride 105 mmol/L (96-108); Creatinine Clr Calc Pharmacy 68.2; Estimated Glomerular Filt Rate > 60; Glucose Random 113 mg/dL (60-115); Potassium 3.6 mmol/L (3.3-5.1); Sodium 139 mmol/L (135-145); Total Protein 7.3 g/dL (6.5-8.0)
[2024-10-21 21:37] LABS: Acetaminophen LAB < 3 mcg/mL (<30); Salicylate < 5.0 mg/dL (15-30)
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
--- NOTE | 2024-10-21 22:57 | ECG_ITS ---
Test Reason : med clearance Blood Pressure : / mmHG Vent. Rate : 074 BPM Atrial Rate : 074 BPM P-R Int : 154 ms QRS Dur : 086 ms QT Int : 372 ms P-R-T Axes : 064 044 038 degrees QTc Int : 412 ms Normal sinus rhythm Normal ECG No previous ECGs available Referred By: Evelio Rodrigez Electronically Signed By:Orion Beckham
[2024-10-21 23:45] VITALS: BP 130/85; PULSE 93; RESP 16; TEMP 36.4; O2SAT 95
[2024-10-22] MEDS: Melatonin 3 MG TABLET 6 MG PO (00:34)
[2024-10-22 00:55] VITALS: BP 147/74; PULSE 74; RESP 16; TEMP 36.5; O2SAT 97
[2024-10-22 01:00] VITALS: BMI 25.4
[2024-10-22] MEDS: Ibuprofen 400 MG TABLET PO ×2 (05:32→11:37)
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
--- NOTE | 2024-10-22 08:24 | HO.PSYADMNOT ---
HPI Date of Service: 10/22/24 Chief Complaint: bipolar disorder , bonilla Sources of Information: patient interviewed, chart reviewed and crisis/core team assessment reviewed Additional Sources of Information: I wanted to contact 1 of her sons but no numbers are available HPI Subjective Notes: March Warning and Section 12B Healthcare Proxy: No Guardianship: No Medical Problems Affecting Mental Status: No Narrative: Barbara is a 64-year-old, (4 years), mother of 3 adult sons. This is her 1st hospitalization psychiatrically. She was brought to the emergency room after the daughter of Barbara's adult foster care client called and asked for a wellness check on her father in light of Barbara's presentation lately.. Upon arriving she was found to be talking to her phone in her room but not to anyone. She was disorganized, hyperverbal, talking about possible paranoid delusions or ideations.. She also referred to a leak in the bathroom and none were seen. She admits to being under psychiatric care with a therapist but no psychiatrist. She has nausea and denies having been on psychotropic medications. She has been having trouble sleeping. She denies any substance use or abuse. She denies any suicidal or homicidal ideations. When questioned about possible hypomanic symptoms previously she did not endorse any, however her current status as a reliable historian is questionable Past Psychiatric History: Outpatient treatment Medical Evaluation Reviewed: Hospitalist Heather Pending [facility] Narrative: She admits to hypercholesterolemia, fibromyalgia, and ?autoimmune disease? that is being worked up, osteoporosis. No list of medications are available and we will inquire later in the day if her pharmacy is open Family History: Unknown Social History: Barbara is 1 of 5 siblings. Both parents are . She was for 41 years and for 4 and has a restraining order against her ex-. She is not able to give much background information and was inpatient with this in light of being hungry?. Substance History: None known Trauma History: None known Diagnostics Vital Signs (24Hr): Vital Signs - 24 hr 10/21/24 20:30 10/21/24 23:45 10/22/24 00:55 Temperature 97.7 F 97.6 F 97.7 F Pulse Rate 91 93 74 Respiratory Rate 15 16 16 Blood Pressure 157/92 H 130/85 147/74 H Pulse Oximetry 97 95 97 Oxygen Delivery Method Room Air Room Air Room Air BMI result Body Mass Index 25.4 Labs 10/21/24 21:12 10/21/24 21:12 Labs: Laboratory Results - last 48 hr 10/21/24 10/21/24 20:57 21:12 WBC 7.9 RBC 4.77 Hgb 14.6 Hct 42.7 MCV 89.5 MCH 30.6 MCHC 34.2 RDW 13.5 Plt Count 200 MPV 10.8 Immature Gran % (Auto) 0.1 Neut % (Auto) 66.8 Lymph % (Auto) 23.5 [place] % (Auto) 9.2 Eos % (Auto) 0.0 Baso % (Auto) 0.4 Lymph # (Auto) 1.9 [place] # (Auto) 0.7 Eos # (Auto) 0.0 Baso # (Auto) 0.0 Abs Immat Gran (auto) 0.01 Absolute Neuts (auto) 5.3 Absolute Nucleated RBC 0.000 Nucleated RBC % (auto) 0.0 Sodium 139 Potassium 3.6 Chloride 105 Carbon Dioxide 25 Anion Gap 13 BUN 11 Creatinine 0.75 Estim Creat Clear Calc 68.2 Estimated GFR > 60 Random Glucose 113 Calcium 9.5 D Total Bilirubin 0.4 AST 36 H ALT 25 Alkaline Phosphatase 54 Total Protein 7.3 Albumin 4.6 Urine Color Yellow Urine Appearance Clear Urine pH 6.0 Ur Specific [place] 1.025 Urine Protein Negative Urine Glucose (UA) Negative Urine Ketones Negative Urine Blood Negative Urine Nitrite Negative Ur Leukocyte Esterase Small (1+) H Urine RBC 0-2 Urine WBC 11-20 H Ur Squamous Epith Cells 11-20 Urine Bacteria 1+ Hyaline Casts 0-2 Salicylates < 5.0 L Urine Opiates Screen Not Detected Ur Buprenorphine Scrn Not Detected Ur Oxycodone Screen Not Detected Urine Methadone Screen Not Detected Urine Fentanyl Screen Not Detected Acetaminophen < 3 Ur Barbiturates Screen Not Detected Ur Phencyclidine Scrn Not Detected Ur Amphetamines Screen Not Detected U Benzodiazepines Scrn Not Detected Urine Cocaine Screen Not Detected U Marijuana (THC) Screen POSITIVE H Ethyl Alcohol < 10 Meds/Allergies Meds Home Medications ?Medication ?Instructions ?Recorded ?Confirmed ?Type ezetimibe 10 mg tablet 10 mg PO DAILY 10/22/24 10/22/24 History rosuvastatin 40 mg tablet 40 mg PO DAILY 10/22/24 10/22/24 History Allergies Allergies Allergy/AdvReac Type Severity Reaction Status Date / Time pregabalin [From Lyrica] Allergy Swelling Verified 10/21/24 20:34 acetaminophen [From Percocet] AdvReac Hallucinati Verified 10/21/24 20:34 ons oxycodone [From Percocet] AdvReac Hallucinati Verified 10/21/24 20:34 ons Mental Status Exam Mental Status Exam Narrative: Barbara was seen the morning after her admission. She is alert, oriented and pleasant. Speech is pressured. Moderate to good eye contact. Affect is appropriate and somewhat labile. No acute signs of psychosis observed and denies any AVH. Some paranoid ideas and possible delusions have been observed but not overtly at this time. Thought processes are disorganized and is tangential and circumstantial. She denies any SI/HI. Judgment is marginal. Assessment & Plan Assessment & Plan (1) Bipolar 1 disorder, mixed, moderate: Status: Acute Code(s): F31.62 - Bipolar disorder, current episode mixed, moderate Plan In conclusion Barbara meets criteria for IP LOC for safety, stabilization and treatment. She is currently in hypomanic phase and I tried to talk to her about starting her on a mood stabilizer but she does not want to and wants only something for sleep which she has available. We will try to get some collateral information probably tomorrow. She will remain on 12 B status for now. Patient educated on: diagnosis, medication risk/benefits and therapeutic strategies Reason for continued inpatient stay Substantial Risk for: inability to function and rapid decompensation Statement Statement: I have reviewed the history and physical and performed a pertinent examination on my patient. No changes have occurred unless specified. If the History and Physical was not performed prior to admission, the Hospitalist's service will be consulted for completing the admission physical. Time Spent With Patient Time: Total time managing care of this patient today ____ minutes.
--- NOTE | 2024-10-22 08:56 | PHA.MEDREC ---
Pharmacy Consult ? Medication Reconciliation Pharmacy has completed the medication reconciliation. RPH reviewed med rec done by nursing
[2024-10-22 09:29] LABS: Estimated Average Glucose 108 mg/dL; Hemoglobin A1C 127.9388 umol/L; Hemoglobin A1c % 5.4 % (<6.0); Total Hemoglobin (HGBA1C) 3612.4228 umol/L
[2024-10-22 09:44] LABS: Cholesterol 153 mg/dL (<200); HDL Cholesterol 58 mg/dL (>40); LDL Cholesterol Calculated 84 mg/dL (<100); Magnesium 2.1 mg/dL (1.6-2.6); Triglycerides 58 mg/dL (<150)
[2024-10-22 10:12] LABS: Folate 14.3 ng/mL (> or = 4.0); Vitamin B12 514 pg/mL (200-900)
[2024-10-22 10:25] LABS: Free T4 (Free Thyroxine) 1.07 ng/dL (0.71-1.85); Thyroid Stimulating Hormone 1.33 uIU/mL (0.32-4.0)
--- NOTE | 2024-10-22 11:16 | PC.NURSE ---
Attempted to contact [facility] pharmacy @ [facility] to obtain to med record of pts meds but they are closed today for [place]. Dr Finley made aware.
[2024-10-22] MEDS: Docusate Sodium 100 MG CAPSULE PO ×2 (12:37→22:36)
[2024-10-22 17:52] VITALS: BP 142/77; PULSE 76; TEMP 36.6; O2SAT 99
[2024-10-22 20:00] VITALS: BP 127/73; PULSE 79; RESP 16; TEMP 36.4; O2SAT 98
[2024-10-22] MEDS: traZODone HCL 50 MG TABLET PO (23:07)
[2024-10-23 07:00] VITALS: BMI 25.0
[2024-10-23 07:47] VITALS: BP 133/74; PULSE 69; RESP 18; TEMP 36.8; O2SAT 99
[2024-10-23] MEDS: Docusate Sodium 100 MG CAPSULE PO ×2 (09:09→21:24)
[2024-10-23] MEDS: Ibuprofen 400 MG TABLET PO ×2 (12:27→21:25)
[2024-10-23] MEDS: Magnesium Hydrox/Alum Hydrox 30 ML ORAL.SUSP PO (12:28)
--- NOTE | 2024-10-23 15:56 | P.PNPSI_ITS ---
Subjective Subjective Date of Service: 10/23/24 Reason For Visit: bipolar disorder , bonilla Interim History: calm, cooperative, pleasant. pressured. paranoid delusional tangents. redirectable, to a degree. agreeable to trial of zyprexa 2.5 for insomnia and thought speed/organization. per staff, pressured speech, no meds. slept about 5 hours. Mental Status Exam Mental Status Exam Narrative: She is alert, oriented and pleasant. Speech is pressured. Moderate to good eye contact. Affect is appropriate and non-labile. paranoid delusions. Thought processes are disorganized and is tangential and circumstantial. no SI/HI/AVH expressed. Judgment is marginal. Diagnostics Vital Signs (24Hr): Vital Signs - 24 hr 10/22/24 17:52 10/22/24 20:00 10/23/24 07:47 Temperature 97.8 F 97.6 F 98.3 F Pulse Rate 76 79 69 Respiratory Rate 16 18 Blood Pressure 142/77 H 127/73 133/74 Pulse Oximetry 99 98 99 Oxygen Delivery Method Room Air Room Air Room Air BMI result Body Mass Index 25.4 Labs 10/21/24 21:12 10/21/24 21:12 Labs: Laboratory Results - last 48 hr 10/21/24 10/21/24 10/22/24 20:57 21:12 08:41 WBC 7.9 RBC 4.77 Hgb 14.6 Hct 42.7 MCV 89.5 MCH 30.6 MCHC 34.2 RDW 13.5 Plt Count 200 MPV 10.8 Immature Gran % (Auto) 0.1 Neut % (Auto) 66.8 Lymph % (Auto) 23.5 [place] % (Auto) 9.2 Eos % (Auto) 0.0 Baso % (Auto) 0.4 Lymph # (Auto) 1.9 [place] # (Auto) 0.7 Eos # (Auto) 0.0 Baso # (Auto) 0.0 Abs Immat Gran (auto) 0.01 Absolute Neuts (auto) 5.3 Absolute Nucleated RBC 0.000 Nucleated RBC % (auto) 0.0 Sodium 139 Potassium 3.6 Chloride 105 Carbon Dioxide 25 Anion Gap 13 BUN 11 Creatinine 0.75 Estim Creat Clear Calc 68.2 Estimated GFR > 60 Random Glucose 113 Estimat Average Glucose 108 Hemoglobin A1c % 5.4 Calcium 9.5 D Magnesium 2.1 Total Bilirubin 0.4 AST 36 H ALT 25 Alkaline Phosphatase 54 Total Protein 7.3 Albumin 4.6 Triglycerides 58 Cholesterol 153 LDL Cholesterol, Calc 84 HDL Cholesterol 58 Vitamin B12 514 Folate 14.3 TSH 1.33 Free T4 1.07 Urine Color Yellow Urine Appearance Clear Urine pH 6.0 Ur Specific [place] 1.025 Urine Protein Negative Urine Glucose (UA) Negative Urine Ketones Negative Urine Blood Negative Urine Nitrite Negative Ur Leukocyte Esterase Small (1+) H Urine RBC 0-2 Urine WBC 11-20 H Ur Squamous Epith Cells 11-20 Urine Bacteria 1+ Hyaline Casts 0-2 Salicylates < 5.0 L Urine Opiates Screen Not Detected Ur Buprenorphine Scrn Not Detected Ur Oxycodone Screen Not Detected Urine Methadone Screen Not Detected Urine Fentanyl Screen Not Detected Acetaminophen < 3 Ur Barbiturates Screen Not Detected Ur Phencyclidine Scrn Not Detected Ur Amphetamines Screen Not Detected U Benzodiazepines Scrn Not Detected Urine Cocaine Screen Not Detected U Marijuana (THC) Screen POSITIVE H Ethyl Alcohol < 10 Medications Medications Current Medications Al Hydroxide/Mg Hydroxide (Magnesium Hydrox/Alum Hydrox 30 Ml Oral.Susp) 30 ml PO Q6H PRN PRN Reason: Heartburn/Nausea Last Admin: 10/23/24 12:28 Dose: 30 ml Docusate Sodium (Docusate Sodium 100 Mg Capsule) 100 mg PO BID [facility] Last Admin: 10/23/24 09:09 Dose: 100 mg Ezetimibe (Ezetimibe 10 Mg Tablet) 10 mg PO DAILY [facility] Hydroxyzine HCl (Hydroxyzine Hcl 25 Mg Tablet) 25 mg PO Q6H PRN PRN Reason: Anxiety Ibuprofen (Ibuprofen 400 Mg Tablet) 400 mg PO Q6H PRN PRN Reason: Pain, Mild (Pain Scale 1-3) Last Admin: 10/23/24 12:27 Dose: 400 mg Magnesium Hydroxide (Milk Of Magnesia 30 Ml Oral.Susp) 30 ml PO DAILY PRN PRN Reason: Constipation Nicotine Polacrilex (Nicotine Polacrilex 2 Mg Gum) 4 mg BUCCAL Q2H PRN PRN Reason: Nicotine Cravings Non-Formulary Medication (Rosuvastatin) 40 mg PO DAILY [facility] Olanzapine (Olanzapine 5 Mg Tablet) 5 mg PO Q4H PRN PRN Reason: agitation,bonilla,psychosis Olanzapine (Olanzapine 2.5 Mg Tablet) 2.5 mg PO BEDTIME ADOLFO Trazodone HCl (Trazodone Hcl 50 Mg Tablet) 50 mg PO BEDTIME ADOLFO Trazodone HCl (Trazodone Hcl 50 Mg Tablet) 50 mg PO BEDTIME PRN PRN Reason: Insomnia Allergies Allergies Allergy/AdvReac Type Severity Reaction Status Date / Time pregabalin [From Lyrica] Allergy Swelling Verified 10/21/24 20:34 acetaminophen [From Percocet] AdvReac Hallucinati Verified 10/21/24 20:34 ons oxycodone [From Percocet] AdvReac Hallucinati Verified 10/21/24 20:34 ons Assessment & Plan Assessment & Plan (1) Bipolar 1 disorder, mixed, moderate: Status: Acute Code(s): F31.62 - Bipolar disorder, current episode mixed, moderate Plan 10/22: She is currently in hypomanic phase and I tried to talk to her about starting her on a mood stabilizer but she does not want to and wants only something for sleep which she has available. We will try to get some collateral information probably tomorrow. She will remain on 12 B status for now. 10/23: agreeable to schedule trazodone 50 and zyprexa 2.5 at HS for thought speed/organization as well as sleep. pressured, paranoid delusions. Reason for continued inpatient stay Substantial Risk for: inability to function and rapid decompensation Time Spent With Patient Time: Total time managing care of this patient today __35__ minutes.
[2024-10-23] MEDS: Ezetimibe 10 MG TABLET PO (17:06)
[2024-10-23 20:00] VITALS: BP 167/96; PULSE 84; RESP 16; TEMP 36.5; O2SAT 97
[2024-10-23 21:14] VITALS: BP 138/80
[2024-10-23] MEDS: traZODone HCL 50 MG TABLET PO (21:24)
[2024-10-23] MEDS: OLANZapine 2.5 MG TABLET PO (21:25)
[2024-10-24 07:52] VITALS: BP 166/74; PULSE 69; RESP 16; TEMP 36.7; O2SAT 98
[2024-10-24] MEDS: Docusate Sodium 100 MG CAPSULE PO ×2 (08:24→20:15)
[2024-10-24] MEDS: Atorvastatin Calcium 40 MG TABLET 80 MG PO (08:24)
[2024-10-24] MEDS: Ezetimibe 10 MG TABLET PO (08:24)
[2024-10-24] MEDS: Magnesium Oxide 400 MG TABLET PO ×2 (12:40→17:41)
[2024-10-24] MEDS: Cholecalciferol (Vitamin D3) 10 MCG TABLET PO (12:40)
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
[2024-10-24 20:00] VITALS: BP 133/82; PULSE 95; RESP 16; TEMP 36.6; O2SAT 99
[2024-10-24] MEDS: OLANZapine 5 MG TABLET PO (20:15)
[2024-10-24] MEDS: traZODone HCL 50 MG TABLET PO (20:15)
[2024-10-25 08:00] VITALS: BP 131/66; PULSE 73; RESP 16; TEMP 36.2; O2SAT 99
[2024-10-25] MEDS: Atorvastatin Calcium 40 MG TABLET 80 MG PO (08:27)
[2024-10-25] MEDS: Docusate Sodium 100 MG CAPSULE PO ×2 (08:27→20:22)
[2024-10-25] MEDS: Magnesium Oxide 400 MG TABLET PO ×2 (08:27→17:55)
[2024-10-25] MEDS: Cholecalciferol (Vitamin D3) 10 MCG TABLET PO (08:28)
[2024-10-25] MEDS: Ezetimibe 10 MG TABLET PO (08:28)
[2024-10-25] MEDS: Ibuprofen 400 MG TABLET PO (08:28)
--- NOTE | 2024-10-25 10:42 | HO.PSYCHPN ---
Subjective Subjective Date of Service: 10/25/24 Reason For Visit: bipolar disorder , bonilla Interim History: Patient seen and discussed with RN. Patient reports her thoughts have slowed down. She feels improved compared to admission. Remains pressured and fixated on her work situation and the circumstances that led to her admission. She Review of Systems Review of Systems Generalized pain related to fibromyalgia Yes all other systems are reviewed and are negative Constitutional: Denies body ache(s), Denies chills and Denies fever(s) Eyes: Denies floaters Denies vertigo and Denies dizziness Cardiovascular: Denies chest pain and Denies dyspnea Respiratory: Denies cough and Denies dyspnea Gastrointestinal: Denies abdominal pain Musculoskeletal: Denies back pain Skin/Breast: Denies rash Denies vertigo and Denies dizziness Psychiatric: Reports anxiety, Denies depression, Reports panic attacks, Reports paranoia, Denies visual hallucinations and Denies suicidal ideation Mental Status Exam Mental Status Exam Narrative: She is alert, oriented and pleasant. Speech is pressured. good eye contact. Affect is appropriate and non-labile, hyper-intense. paranoid delusions. Thought processes are disorganized and tangential and circumstantial. no SI/HI/AVH expressed. Judgment is marginal. Diagnostics Vital Signs (24Hr): Vital Signs - 24 hr 10/24/24 20:00 10/25/24 08:00 Temperature 97.9 F 97.2 F Pulse Rate 95 73 Respiratory Rate 16 16 Blood Pressure 133/82 131/66 Pulse Oximetry 99 99 Oxygen Delivery Method Room Air Room Air BMI result Body Mass Index 25.0 Labs 10/21/24 21:12 10/21/24 21:12 Medications Medications Current Medications Al Hydroxide/Mg Hydroxide (Magnesium Hydrox/Alum Hydrox 30 Ml Oral.Susp) 30 ml PO Q6H PRN PRN Reason: Heartburn/Nausea Last Admin: 10/23/24 12:28 Dose: 30 ml Atorvastatin Calcium (Atorvastatin Calcium 40 Mg Tablet) 80 mg PO DAILY [facility] Last Admin: 10/25/24 08:27 Dose: 80 mg Docusate Sodium (Docusate Sodium 100 Mg Capsule) 100 mg PO BID [facility] Last Admin: 10/25/24 08:27 Dose: 100 mg Ezetimibe (Ezetimibe 10 Mg Tablet) 10 mg PO DAILY [facility] Last Admin: 10/25/24 08:28 Dose: 10 mg Hydroxyzine HCl (Hydroxyzine Hcl 25 Mg Tablet) 25 mg PO Q6H PRN PRN Reason: Anxiety Ibuprofen (Ibuprofen 400 Mg Tablet) 400 mg PO Q6H PRN PRN Reason: Pain, Mild (Pain Scale 1-3) Last Admin: 10/25/24 08:28 Dose: 400 mg Magnesium Hydroxide (Milk Of Magnesia 30 Ml Oral.Susp) 30 ml PO DAILY PRN PRN Reason: Constipation Magnesium Oxide (Magnesium Oxide 400 Mg Tablet) 400 mg PO BIDPC [facility] Last Admin: 10/25/24 08:27 Dose: 400 mg Nicotine Polacrilex (Nicotine Polacrilex 2 Mg Gum) 4 mg BUCCAL Q2H PRN PRN Reason: Nicotine Cravings Olanzapine (Olanzapine 5 Mg Tablet) 5 mg PO Q4H PRN PRN Reason: agitation,bonilla,psychosis Olanzapine (Olanzapine 5 Mg Tablet) 5 mg PO BEDTIME [facility] Last Admin: 10/24/24 20:15 Dose: 5 mg Trazodone HCl (Trazodone Hcl 50 Mg Tablet) 50 mg PO BEDTIME [facility] Last Admin: 10/24/24 20:15 Dose: 50 mg Trazodone HCl (Trazodone Hcl 50 Mg Tablet) 50 mg PO BEDTIME PRN PRN Reason: Insomnia Vitamin D (Cholecalciferol (Vitamin D3) 10 Mcg Tablet) 10 mcg PO DAILY [facility] Last Admin: 10/25/24 08:28 Dose: 10 mcg Allergies Allergies Allergy/AdvReac Type Severity Reaction Status Date / Time pregabalin [From Lyrica] Allergy Swelling Verified 10/21/24 20:34 acetaminophen [From Percocet] AdvReac Hallucinati Verified 10/21/24 20:34 ons oxycodone [From Percocet] AdvReac Hallucinati Verified 10/21/24 20:34 ons Assessment & Plan Assessment & Plan (1) Bipolar 1 disorder, mixed, moderate: Status: Acute Code(s): F31.62 - Bipolar disorder, current episode mixed, moderate Plan 10/22: She is currently in hypomanic phase and I tried to talk to her about starting her on a mood stabilizer but she does not want to and wants only something for sleep which she has available. We will try to get some collateral information probably tomorrow. She will remain on 12 B status for now. 10/23: agreeable to schedule trazodone 50 and zyprexa 2.5 at HS for thought speed/organization as well as sleep. pressured, paranoid delusions. 10/24: remains pressured but states since zyprexa last night was able to sleep better and thoughts slowed and more organized. agreeable to increase zyprexa to 5 mg QHS. magnesium oxide and vitamin D added per pt request. 10/25: Continue current management and treatment plan. Consider increase in Zyprexa. Feels improved but continues with delusional thoughts and hypomania/bonilla. Reason for continued inpatient stay Substantial Risk for: inability to function and rapid decompensation Time Spent With Patient Time: Total time managing care of this patient today ____ minutes.
[2024-10-25] MEDS: Trolamine Salicylate 10 % Cream 141 gm Tube 1 APPL TOPICAL (14:21)
[2024-10-25 20:00] VITALS: BP 162/82; PULSE 80; RESP 18; TEMP 36.4; O2SAT 98
[2024-10-25] MEDS: OLANZapine 5 MG TABLET PO (20:22)
[2024-10-25] MEDS: traZODone HCL 50 MG TABLET PO (20:22)
[2024-10-26 08:00] VITALS: BP 134/84; PULSE 77; RESP 16; TEMP 36.7; O2SAT 97
[2024-10-26] MEDS: Docusate Sodium 100 MG CAPSULE PO ×2 (08:40→20:30)
[2024-10-26] MEDS: Ezetimibe 10 MG TABLET PO (08:41)
[2024-10-26] MEDS: Atorvastatin Calcium 40 MG TABLET 80 MG PO (08:41)
[2024-10-26] MEDS: Magnesium Oxide 400 MG TABLET PO ×2 (08:41→17:35)
[2024-10-26] MEDS: Cholecalciferol (Vitamin D3) 10 MCG TABLET PO (08:41)
[2024-10-26] MEDS: Ibuprofen 400 MG TABLET PO (09:17)
--- NOTE | 2024-10-26 09:59 | HO.PSYCHPN ---
Subjective Subjective Date of Service: 10/26/24 Reason For Visit: bipolar disorder , bonilla Interim History: Patient seen and discussed with RN. Patient continues to report improvement in her racing thoughts and improved sleep. She however presents with pressured speech and continued fixation on her living/work circumstances that brought her to the hospital and makes some illogical statements and lacks insight into her role in the situation with the person she was taking care of. Paranoid thoughts. Believes her phone was hacked and that the person she was taking care of has access to her money and that she has lost everything. She however feels improved compared to admission. Willing to increase the dose of Zyprexa. No SI/HI. Review of Systems Review of Systems Generalized pain related to fibromyalgia Yes all other systems are reviewed and are negative Constitutional: Denies body ache(s), Denies chills and Denies fever(s) Eyes: Denies floaters Denies vertigo and Denies dizziness Cardiovascular: Denies chest pain and Denies dyspnea Respiratory: Denies cough and Denies dyspnea Gastrointestinal: Denies abdominal pain Musculoskeletal: Denies back pain Skin/Breast: Denies rash Denies vertigo and Denies dizziness Psychiatric: Reports anxiety, Denies depression, Reports panic attacks, Reports paranoia, Denies visual hallucinations and Denies suicidal ideation Mental Status Exam Mental Status Exam Narrative: She is alert, oriented and pleasant. Speech is pressured. good eye contact. Affect is appropriate and non-labile, hyper-intense. paranoid delusions. Thought processes are disorganized and tangential and circumstantial. no SI/HI/AVH expressed. Judgment is marginal. Diagnostics Vital Signs (24Hr): Vital Signs - 24 hr 10/25/24 20:00 10/26/24 08:00 Temperature 97.6 F 98.1 F Pulse Rate 80 77 Respiratory Rate 18 16 Blood Pressure 162/82 H 134/84 Pulse Oximetry 98 97 Oxygen Delivery Method Room Air Room Air BMI result Body Mass Index 25.0 Labs 10/21/24 21:12 10/21/24 21:12 Medications Medications Current Medications Al Hydroxide/Mg Hydroxide (Magnesium Hydrox/Alum Hydrox 30 Ml Oral.Susp) 30 ml PO Q6H PRN PRN Reason: Heartburn/Nausea Last Admin: 10/23/24 12:28 Dose: 30 ml Atorvastatin Calcium (Atorvastatin Calcium 40 Mg Tablet) 80 mg PO DAILY ADOLFO Last Admin: 10/26/24 08:41 Dose: 80 mg Docusate Sodium (Docusate Sodium 100 Mg Capsule) 100 mg PO BID [facility] Last Admin: 10/26/24 08:40 Dose: 100 mg Ezetimibe (Ezetimibe 10 Mg Tablet) 10 mg PO DAILY [facility] Last Admin: 10/26/24 08:41 Dose: 10 mg Hydroxyzine HCl (Hydroxyzine Hcl 25 Mg Tablet) 25 mg PO Q6H PRN PRN Reason: Anxiety Ibuprofen (Ibuprofen 400 Mg Tablet) 400 mg PO Q6H PRN PRN Reason: Pain, Mild (Pain Scale 1-3) Last Admin: 10/26/24 09:17 Dose: 400 mg Magnesium Hydroxide (Milk Of Magnesia 30 Ml Oral.Susp) 30 ml PO DAILY PRN PRN Reason: Constipation Magnesium Oxide (Magnesium Oxide 400 Mg Tablet) 400 mg PO BIDPC [facility] Last Admin: 10/26/24 08:41 Dose: 400 mg Nicotine Polacrilex (Nicotine Polacrilex 2 Mg Gum) 4 mg BUCCAL Q2H PRN PRN Reason: Nicotine Cravings Olanzapine (Olanzapine 5 Mg Tablet) 5 mg PO Q4H PRN PRN Reason: agitation,bonilla,psychosis Olanzapine (Olanzapine 5 Mg Tablet) 5 mg PO BEDTIME [facility] Last Admin: 10/25/24 20:22 Dose: 5 mg Trazodone HCl (Trazodone Hcl 50 Mg Tablet) 50 mg PO BEDTIME [facility] Last Admin: 10/25/24 20:22 Dose: 50 mg Trazodone HCl (Trazodone Hcl 50 Mg Tablet) 50 mg PO BEDTIME PRN PRN Reason: Insomnia Trolamine Salicylate (Trolamine Salicylate 10 % Cream 141 Gm Tube) 1 appl TOPICAL BID PRN; Protocol PRN Reason: Pain, Moderate(Pain Scale 4-6) Last Admin: 10/25/24 14:21 Dose: 1 appl Vitamin D (Cholecalciferol (Vitamin D3) 10 Mcg Tablet) 10 mcg PO DAILY [facility] Last Admin: 10/26/24 08:41 Dose: 10 mcg Allergies Allergies Allergy/AdvReac Type Severity Reaction Status Date / Time pregabalin [From Lyrica] Allergy Swelling Verified 10/21/24 20:34 acetaminophen [From Percocet] AdvReac Hallucinati Verified 10/21/24 20:34 ons oxycodone [From Percocet] AdvReac Hallucinati Verified 10/21/24 20:34 ons Assessment & Plan Assessment & Plan (1) Bipolar 1 disorder, mixed, moderate: Status: Acute Code(s): F31.62 - Bipolar disorder, current episode mixed, moderate Plan 10/22: She is currently in hypomanic phase and I tried to talk to her about starting her on a mood stabilizer but she does not want to and wants only something for sleep which she has available. We will try to get some collateral information probably tomorrow. She will remain on 12 B status for now. 10/23: agreeable to schedule trazodone 50 and zyprexa 2.5 at HS for thought speed/organization as well as sleep. pressured, paranoid delusions. 10/24: remains pressured but states since zyprexa last night was able to sleep better and thoughts slowed and more organized. agreeable to increase zyprexa to 5 mg QHS. magnesium oxide and vitamin D added per pt request. 10/25: Continue current management and treatment plan. Consider increase in Zyprexa. Feels improved but continues with delusional thoughts and hypomania/bonilla. 10/26: Increase Zyprexa to 7.5 mg HS. Continue current management and treatment plan otherwise. Reason for continued inpatient stay Substantial Risk for: inability to function and rapid decompensation Time Spent With Patient Time: Total time managing care of this patient today ____ minutes.
[2024-10-26 20:00] VITALS: BP 134/79; PULSE 78; RESP 15; TEMP 36.9; O2SAT 99
[2024-10-26] MEDS: traZODone HCL 50 MG TABLET PO (20:30)
[2024-10-26] MEDS: OLANZapine 7.5 MG TABLET PO (20:30)
[2024-10-27] MEDS: Ibuprofen 400 MG TABLET PO (05:46)
[2024-10-27 08:15] VITALS: BP 121/65; PULSE 82; RESP 14; TEMP 36.4; O2SAT 97
[2024-10-27] MEDS: Ezetimibe 10 MG TABLET PO (08:47)
[2024-10-27] MEDS: Magnesium Oxide 400 MG TABLET PO (08:47)
[2024-10-27] MEDS: Cholecalciferol (Vitamin D3) 10 MCG TABLET PO (08:47)
[2024-10-27] MEDS: Docusate Sodium 100 MG CAPSULE PO (08:47)
[2024-10-27] MEDS: Atorvastatin Calcium 40 MG TABLET 80 MG PO (08:47)
--- NOTE | 2024-10-27 09:44 | P.PNPSI_ITS ---
Subjective Subjective Reason For Visit: bipolar disorder , bonilla Diagnostics Vital Signs (24Hr): Vital Signs - 24 hr 10/26/24 20:00 Temperature 98.4 F Pulse Rate 78 Respiratory Rate 15 Blood Pressure 134/79 Pulse Oximetry 99 BMI result Body Mass Index 25.0 Labs 10/21/24 21:12 10/21/24 21:12 Medications Medications Current Medications Al Hydroxide/Mg Hydroxide (Magnesium Hydrox/Alum Hydrox 30 Ml Oral.Susp) 30 ml PO Q6H PRN PRN Reason: Heartburn/Nausea Last Admin: 10/23/24 12:28 Dose: 30 ml Atorvastatin Calcium (Atorvastatin Calcium 40 Mg Tablet) 80 mg PO DAILY [facility] Last Admin: 10/27/24 08:47 Dose: 80 mg Docusate Sodium (Docusate Sodium 100 Mg Capsule) 100 mg PO BID [facility] Last Admin: 10/27/24 08:47 Dose: 100 mg Ezetimibe (Ezetimibe 10 Mg Tablet) 10 mg PO DAILY [facility] Last Admin: 10/27/24 08:47 Dose: 10 mg Hydroxyzine HCl (Hydroxyzine Hcl 25 Mg Tablet) 25 mg PO Q6H PRN PRN Reason: Anxiety Ibuprofen (Ibuprofen 400 Mg Tablet) 400 mg PO Q6H PRN PRN Reason: Pain, Mild (Pain Scale 1-3) Last Admin: 10/27/24 05:46 Dose: 400 mg Magnesium Hydroxide (Milk Of Magnesia 30 Ml Oral.Susp) 30 ml PO DAILY PRN PRN Reason: Constipation [facility] ([facility] Mg [facility] Admin: 10/27/24 08:47 Dose: 400 mg Nicotine Polacrilex (Nicotine Polacrilex 2 Mg Gum) 4 mg BUCCAL Q2H PRN PRN Reason: Nicotine Cravings Olanzapine (Olanzapine 5 Mg Tablet) 5 mg PO Q4H PRN PRN Reason: agitation,bonilla,psychosis Olanzapine (Olanzapine 7.5 Mg Tablet) 7.5 mg PO BEDTIME [facility] Last Admin: 10/26/24 20:30 Dose: 7.5 mg Trazodone HCl (Trazodone Hcl 50 Mg Tablet) 50 mg PO BEDTIME [facility] Last Admin: 10/26/24 20:30 Dose: 50 mg Trazodone HCl (Trazodone Hcl 50 Mg Tablet) 50 mg PO BEDTIME PRN PRN Reason: Insomnia Trolamine Salicylate (Trolamine Salicylate 10 % Cream 141 Gm Tube) 1 appl TOPICAL BID PRN; Protocol PRN Reason: Pain, Moderate(Pain Scale 4-6) Last Admin: 10/25/24 14:21 Dose: 1 appl Vitamin D (Cholecalciferol (Vitamin D3) 10 Mcg Tablet) 10 mcg PO DAILY ADOLFO Last Admin: 10/27/24 08:47 Dose: 10 mcg Allergies Allergies Allergy/AdvReac Type Severity Reaction Status Date / Time pregabalin [From Lyrica] Allergy Swelling Verified 10/21/24 20:34 acetaminophen [From Percocet] AdvReac Hallucinati Verified 10/21/24 20:34 ons oxycodone [From Percocet] AdvReac Hallucinati Verified 10/21/24 20:34 ons Assessment & Plan Assessment & Plan (1) Bipolar 1 disorder, mixed, moderate: Status: Acute Code(s): F31.62 - Bipolar disorder, current episode mixed, moderate Plan 10/22: She is currently in hypomanic phase and I tried to talk to her about starting her on a mood stabilizer but she does not want to and wants only something for sleep which she has available. We will try to get some collateral information probably tomorrow. She will remain on 12 B status for now. 10/23: agreeable to schedule trazodone 50 and zyprexa 2.5 at HS for thought speed/organization as well as sleep. pressured, paranoid delusions. 10/24: remains pressured but states since zyprexa last night was able to sleep better and thoughts slowed and more organized. agreeable to increase zyprexa to 5 mg QHS. magnesium oxide and vitamin D added per pt request. 10/25: Continue current management and treatment plan. Consider increase in Zyprexa. Feels improved but continues with delusional thoughts and hypomania/bonilla. 10/26: Increase Zyprexa to 7.5 mg HS. Continue current management and treatment plan otherwise. Time Spent With Patient Time: Total time managing care of this patient today ____ minutes.
--- NOTE | 2024-10-27 11:16 | P.DS_ITS ---
DS: Providers Provider Date of Service: 10/27/24 Date of admission: 10/21/24 23:31 Primary care physician: Donna Saavedra NP DS: Diagnosis Discharge Diagnosis (1) Bipolar 1 disorder, mixed, moderate: Status: Acute DS: Medications Discharge Medications Home Medications: Previous Rx's ?Medication ?Instructions ?Recorded cholecalciferol (vitamin D3) 10 10 mcg PO DAILY #30 tabs 10/27/24 mcg (400 unit) tablet (Vitamin D3) ezetimibe 10 mg tablet 10 mg PO DAILY 30 days #30 tabs 10/27/24 olanzapine 10 mg tablet 10 mg PO BEDTIME 30 days #30 tabs 10/27/24 olanzapine 2.5 mg tablet 2.5 mg PO DAILY PRN agitation #30 10/27/24 tabs rosuvastatin 40 mg tablet 40 mg PO DAILY 30 days #30 tabs 10/27/24 trolamine salicylate 10 % topical 1 appl topical BID PRN Pain, 10/27/24 cream (Aspercreme) Moderate(Pain Scale 4-6) 30 days #85 grams Mental Status Exam Mental Status Exam Narrative: Patient was casually dressed alert and cooperative. Her speech was mildly pressured she did have a plan to hop picker per car and then was hoping to get some help from her children and if not seemed comfortable needing to stay in a assisted for a period of time there were some suspiciousness and paranoid concerns regarding a person that she had reportedly been taking care of but she was not overly intense or agitated about this she was not impulsive there were no hallucinations no thoughts of harm to herself or others strongly urged patient would benefit from further time to be stabilized but was not agreeable Data Data Completed and Pending Completed studies during hospitalization [Text1]: 10/21/24 10/21/24 10/22/24 20:57 21:12 08:41 WBC 7.9 RBC 4.77 Hgb 14.6 Hct 42.7 MCV 89.5 MCH 30.6 MCHC 34.2 RDW 13.5 Plt Count 200 MPV 10.8 Immature Gran % (Auto) 0.1 Neut % (Auto) 66.8 Lymph % (Auto) 23.5 [place] % (Auto) 9.2 Eos % (Auto) 0.0 Baso % (Auto) 0.4 Lymph # (Auto) 1.9 [place] # (Auto) 0.7 Eos # (Auto) 0.0 Baso # (Auto) 0.0 Abs Immat Gran (auto) 0.01 Absolute Neuts (auto) 5.3 Absolute Nucleated RBC 0.000 Nucleated RBC % (auto) 0.0 Sodium 139 Potassium 3.6 Chloride 105 Carbon Dioxide 25 Anion Gap 13 BUN 11 Creatinine 0.75 Estim Creat Clear Calc 68.2 Estimated GFR > 60 Random Glucose 113 Estimat Average Glucose 108 Hemoglobin A1c % 5.4 Calcium 9.5 D Magnesium 2.1 Total Bilirubin 0.4 AST 36 H ALT 25 Alkaline Phosphatase 54 Total Protein 7.3 Albumin 4.6 Triglycerides 58 Cholesterol 153 LDL Cholesterol, Calc 84 HDL Cholesterol 58 Vitamin B12 514 Folate 14.3 TSH 1.33 Free T4 1.07 Urine Color Yellow Urine Appearance Clear Urine pH 6.0 Ur Specific [place] Path 1.025 Urine Protein Negative Urine Glucose (UA) Negative Urine Ketones Negative Urine Blood Negative Urine Nitrite Negative Ur Leukocyte Esterase Small (1+) H Urine RBC 0-2 Urine WBC 11-20 H Ur Squamous Epith Cells 11-20 Urine Bacteria 1+ Hyaline Casts 0-2 Salicylates < 5.0 L Urine Opiates Screen Not Detected Ur Buprenorphine Scrn Not Detected Ur Oxycodone Screen Not Detected Urine Methadone Screen Not Detected Urine Fentanyl Screen Not Detected Acetaminophen < 3 Ur Barbiturates Screen Not Detected Ur Phencyclidine Scrn Not Detected Ur Amphetamines Screen Not Detected U Benzodiazepines Scrn Not Detected Urine Cocaine Screen Not Detected U Marijuana (THC) Screen POSITIVE H Ethyl Alcohol < 10 10/21/24 Unknown Urine clean catch - Clean Catch Midstream Urine Culture - Final DS: Summary Hospital Course Hospital Course: [address] [address] Psychiatry Admission Note (In) Signed Patient: Barbara Estes MR#: [id number] : 1960 Acct:[id number] Age/Sex: 64 / F Loc: [id number]: Analy Davies APRN cc: Zoe Finley MD~ HPI Date of Service: 10/22/24 Chief Complaint: bipolar disorder , bonilla Sources of Information: patient interviewed, chart reviewed and crisis/core team assessment reviewed Additional Sources of Information: I wanted to contact 1 of her sons but no numbers are available HPI Subjective Notes: March Warning and Section 12B Healthcare Proxy: No Guardianship: No Medical Problems Affecting Mental Status: No Narrative: Barbara is a 64-year-old, (4 years), mother of 3 adult sons. This is her 1st hospitalization psychiatrically. She was brought to the emergency room after the daughter of Barbara's adult foster care client called and asked for a wellness check on her father in light of Barbara's presentation lately.. Upon arriving she was found to be talking to her phone in her room but not to anyone. She was disorganized, hyperverbal, talking about possible paranoid delusions or ideations.. She also referred to a leak in the bathroom and none were seen. She admits to being under psychiatric care with a therapist but no psychiatrist. She has nausea and denies having been on psychotropic medications. She has been having trouble sleeping. She denies any substance use or abuse. She denies any suicidal or homicidal ideations. When questioned about possible hypomanic symptoms previously she did not endorse any, however her current status as a reliable historian is questionable Past Psychiatric History: Outpatient treatment Medical Evaluation Reviewed: Hospitalist Heather Pending [facility] Narrative: She admits to hypercholesterolemia, fibromyalgia, and ?autoimmune disease? that is being worked up, osteoporosis. No list of medications are available and we will inquire later in the day if her pharmacy is open Family History: Unknown Social History: Barbara is 1 of 5 siblings. Both parents are . She was for 41 years and for 4 and has a restraining order against her ex-. She is not able to give much background information and was inpatient with this in light of being hungry?. Substance History: None known Trauma History: None known Diagnostics Vital Signs (24Hr): Vital Signs - 24 hr 10/21/24 20:30 10/21/24 23:45 10/22/24 00:55 Temperature 97.7 F 97.6 F 97.7 F Pulse Rate 91 93 74 Respiratory Rate 15 16 16 Blood Pressure 157/92 H 130/85 147/74 H Pulse Oximetry 97 95 97 Oxygen Delivery Method Room Air Room Air Room Air BMI result Body Mass Index 25.4 Labs 10/21/24 21:12 document embedded image 10/21/24 21:12 document embedded image Labs: Laboratory Results - last 48 hr 10/21/24 10/21/24 20:57 21:12 WBC 7.9 RBC 4.77 Hgb 14.6 Hct 42.7 MCV 89.5 MCH 30.6 MCHC 34.2 RDW 13.5 Plt Count 200 MPV 10.8 Immature Gran % (Auto) 0.1 Neut % (Auto) 66.8 Lymph % (Auto) 23.5 [place] % (Auto) 9.2 Eos % (Auto) 0.0 Baso % (Auto) 0.4 Lymph # (Auto) 1.9 [place] # (Auto) 0.7 Eos # (Auto) 0.0 Baso # (Auto) 0.0 Abs Immat Gran (auto) 0.01 Absolute Neuts (auto) 5.3 Absolute Nucleated RBC 0.000 Nucleated RBC % (auto) 0.0 Sodium 139 Potassium 3.6 Chloride 105 Carbon Dioxide 25 Anion Gap 13 BUN 11 Creatinine 0.75 Estim Creat Clear Calc 68.2 Estimated GFR > 60 Random Glucose 113 Calcium 9.5 D Total Bilirubin 0.4 AST 36 H ALT 25 Alkaline Phosphatase 54 Total Protein 7.3 Albumin 4.6 Urine Color Yellow Urine Appearance Clear Urine pH 6.[address] [place] [address] 1.025 Urine Protein Negative Urine Glucose (UA) Negative Urine Ketones Negative Urine Blood Negative Urine Nitrite Negative Ur Leukocyte Esterase Small (1+) H Urine RBC 0-2 Urine WBC 11-20 H Ur Squamous Epith Cells 11-20 Urine Bacteria 1+ Hyaline Casts 0-2 Salicylates < 5.0 L Urine Opiates Screen Not Detected Ur Buprenorphine Scrn Not Detected Ur Oxycodone Screen Not Detected Urine Methadone Screen Not Detected Urine Fentanyl Screen Not Detected Acetaminophen < 3 Ur Barbiturates Screen Not Detected Ur Phencyclidine Scrn Not Detected Ur Amphetamines Screen Not Detected U Benzodiazepines Scrn Not Detected Urine Cocaine Screen Not Detected U Marijuana (THC) Screen POSITIVE H Ethyl Alcohol < 10 Meds/Allergies Meds Home Medications Medication Instructions Recorded Confirmed Type ezetimibe 10 mg tablet 10 mg PO DAILY 10/22/24 10/22/24 History rosuvastatin 40 mg tablet 40 mg PO DAILY 10/22/24 10/22/24 History Allergies Allergies Allergy/AdvReac Type Severity Reaction Status Date / Time pregabalin [From Lyrica] Allergy Swelling Verified 10/21/24 20:34 acetaminophen [From Percocet] AdvReac Hallucinati Verified 10/21/24 20:34 ons oxycodone [From Percocet] AdvReac Hallucinati Verified 10/21/24 20:34 ons Mental Status Exam Mental Status Exam Narrative: Barbara was seen the morning after her admission. She is alert, oriented and pleasant. Speech is pressured. Moderate to good eye contact. Affect is appropriate and somewhat labile. No acute signs of psychosis observed and denies any AVH. Some paranoid ideas and possible delusions have been observed but not overtly at this time. Thought processes are disorganized and is tangential and circumstantial. She denies any SI/HI. Judgment is marginal. Assessment & Plan Assessment & Plan (1) Bipolar 1 disorder, mixed, moderate: Status: Acute Code(s): F31.62 - Bipolar disorder, current episode mixed, moderate Plan In conclusion Barbara meets criteria for IP LOC for safety, stabilization and treatment. She is currently in hypomanic phase and I tried to talk to her about starting her on a mood stabilizer but she does not want to and wants only something for sleep which she has available. We will try to get some collateral information probably tomorrow. She will remain on 12 B status for now. Patient educated on: diagnosis, medication risk/benefits and therapeutic strate gies Reason for continued inpatient stay Substantial Risk for: inability to function and rapid decompensation Statement Statement: I have reviewed the history and physical and performed a pertinent examination on my patient. No changes have occurred unless specified. If the History and Physical was not performed prior to admission, the Hospitalist's service will be consulted for completing the admission physical. Time Spent With Patient Time: Total time managing care of this patient today ____ minutes. Dictated By: Zoe Finley MD Signed By: <Electronically signed by Zoe Finley MD> 10/22/24 7488 HOSPITAL COURSE The patient was admitted to on a section 12 B the patient was thought to be manic with racing thoughts impulsivity expansiveness and paranoid concerns regarding person she had recently been taking care of. The patient denied history of bipolar disorder she was started on olanzapine which was increased to 7.5 mg. The patient gradually had a decrease in racing thoughts impulsivity became somewhat more thoughtful. She was talking about the possibility of picking up her car was agreeable to outpatient treatment and referral to [facility] she is denying any thoughts of harm to herself or others some decrease in paranoid preoccupations. She was not thought to be committable and refused to sign a conditional voluntary which was strongly urged. Patient stated she did have family support she would have a therapist she had been seeing previously she was discharged on 10 mg olanzapine with a 2.5 mg p.r.n.. The patient's admission labs physical have been unremarkable urine was positive for marijuana Time Spent with Patient Time attestation: Total time managing care of this patient today ____ minutes. Discharge Plan Discharge Anticipated Discharge Date/Time: 10/27/24 12:15 Patient Disposition: Senior Living Discharge Diagnosis: bipolar nos ptsd Referrals: DONNA FERRER [Other] - 1 Week (FAX [phone] OFFICE TO CALL PT) [employer] Walk In Hours [Other] - 1 Week (Walk in hours Sunday-Sunday 8am-8pm) Discharge Medications: New cholecalciferol (vitamin D3) [Vitamin D3] 10 mcg (400 unit) Tablet 10 mcg PO DAILY Qty: 30 1RF trolamine salicylate [Aspercreme] 10 % Cream 1 appl topical BID PRN (Reason: Pain, Moderate(Pain Scale 4-6)) 30 Days Qty: 85 0RF Protocol: Apply to: Apply to: knees olanzapine 10 mg Tablet 10 mg PO BEDTIME 30 Days Qty: 30 0RF olanzapine 2.5 mg Tablet 2.5 mg PO DAILY PRN (Reason: agitation) Qty: 30 0RF Continued rosuvastatin 40 mg tablet 40 mg PO DAILY 30 Days Qty: 30 1RF ezetimibe 10 mg tablet 10 mg PO DAILY 30 Days Qty: 30 0RF Discharge Orders: Discharge Order (Routine); Ordered 10/27/24 Ordered By: Santana Roberto Diet: Advance to usual diet Activity on Discharge: As tolerated Stand Alone Forms: Patient Portal Discharge page, Community Support Print Language: Urdu Activity Restrictions/Additional Instructions: would urge you not to drive at this time your concentration attention are impaired more distractible would strongly urge you to not drive and have suggested you give us more time for additional outpt support please follow up with psychiatric follow up I have urged you to give us more time to help with stabilizatioon and outpt supports Care Plan Goals: stabilize mood improve concentration Health Concerns: mood instability elevated cholesterol Plan of Treatment: olanzapine individual therapy Assessment: improved mood less anxiety you seem to have distractibility difficulty integrating information if you feel like you have left too soon please call 911 or go to [facility] emergency room [facility] also has walk in hours Discharge Date/Time: 10/27/24 11:20
== END 2024-10-27 11:20 | disposition home or self-care (01) | DRG 885 ==
LOC: HO.ED 22:13 → HO.PADLT16 10-22 00:18
PROVIDERS: Physician Assistant; Admitting Provider Clinical Nurse Specialist Psychiatric/Mental Health, Adult; Emergency Provider Emergency Medicine; PCP Nurse Practitioner Family; Visit Provider Psychiatry & Neurology Psychiatry
DX: F31.62 Bipolar disorder, current episode mixed, moderate (principal); M79.7 Fibromyalgia; Z87.891 Personal history of nicotine dependence; Z79.899 Other long term (current) drug therapy
CPT/HCPCS: 36415; 80053; 80061; 80143; 80179; 80307; 81001; 82607; 82746; 83036; 83735; 84439; 84443; 85025; 87086; 93005; 99285

== ENCOUNTER → 2024-10-21 22:57 | Outpatient (BNV) | payer MEDICARE, MEDICAID, SELFPAY | PROVIDERS: Admitting Provider Clinical Nurse Specialist Psychiatric/Mental Health, Adult; Emergency Provider Emergency Medicine; PCP Nurse Practitioner Family; Visit Provider Internal Medicine Cardiovascular Disease | DX: Z01.818 Encounter for other preprocedural examination (principal) | CPT/HCPCS: 93010 ==

== ENCOUNTER → 2024-10-21 23:31 | Outpatient (BNV) | payer MEDICARE, MEDICAID, SELFPAY | PROVIDERS: Admitting Provider Clinical Nurse Specialist Psychiatric/Mental Health, Adult; Emergency Provider Emergency Medicine; PCP Nurse Practitioner Family; Visit Provider Psychiatry & Neurology Psychiatry | DX: F31.62 Bipolar disorder, current episode mixed, moderate (principal) | CPT/HCPCS: 99239 ==

== ENCOUNTER → 2024-10-21 23:31 | Outpatient (BNV) | payer MEDICARE, MEDICAID, SELFPAY | PROVIDERS: Admitting Provider Clinical Nurse Specialist Psychiatric/Mental Health, Adult; Emergency Provider Emergency Medicine; PCP Nurse Practitioner Family; Visit Provider Psychiatry & Neurology Psychiatry | DX: F31.62 Bipolar disorder, current episode mixed, moderate (principal) | CPT/HCPCS: 90792; 99232 ==